=== PATIENT | female | born 1960 | race Caucasian/White ===

== ENCOUNTER → 2017-10-15 | Outpatient (CLI) | payer BC ==
[2017-10-15 16:53] LABS: Basophils # (A) 0.1 k/uL (0-0.2); Basophils % (A) 1 %; Eosinophils # (A) 0.2 k/uL (0-0.7); Eosinophils % (A) 2 %; HCT 43.2 % (34.0-46.0); Lymphocytes # (A) 1.5 k/uL (1.0-4.8); Lymphocytes % (A) 16 %; MCH 28.7 pg (25.0-35.0); MCHC 32.4 g/dL (31.0-37.0); MCV 88.5 fL (80.0-100.0); Mean Platelet Volume 7.2; Monocytes # (A) 0.5 k/uL (0-1.0); Monocytes % (A) 6 %; Neutrophils # (A) 7.2 k/uL (1.3-7.7); Neutrophils % (A) 75 %; Platelet Count 286 k/uL (150-450); RBC 4.88 m/uL (3.80-5.40); RDW 13.3 % (11.5-15.5); WBC 9.6 k/uL (3.8-10.6)
== END | disposition home or self-care (01) ==
LOC: LABPAT 16:27
PROVIDERS: ATTEND Obstetrics & Gynecology
DX: N93.8 Other specified abnormal uterine and vaginal bleeding (principal)
CPT/HCPCS: 36415; 85025

== ENCOUNTER 2017-10-23 06:46 | Day surgery (SDC) | payer BC, OTHER ==
[2017-10-20 11:57] VITALS: BMI 30.7
--- NOTE | 2017-10-22 12:09 | HP ---
HISTORY AND PHYSICAL DATE OF ADMISSION: 10/23/2017 HISTORY: This is a 56-year-old 2, para 1-1-0-1 woman with postmenopausal bleeding and thickened endometrium on pelvic ultrasound. Endometrial biopsy was benign. She is scheduled to undergo diagnostic hysteroscopy, D and C, and NovaSure endometrial ablation. ALLERGIES: PENICILLIN causes rash. MEDICATIONS: 1. Prometrium 200 mg at bedtime. 2. Loratadine 10 mg p.r.n. PAST MEDICAL HISTORY: Diverticulosis. PAST SURGICAL HISTORY: Appendectomy 2000, knee surgery 1982. PAST [employer]IN WORKER HISTORY: She is a 2, para 1-1-0-1 woman with history of 2 vaginal deliveries with 1 living child. No history of abnormal Pap smears or STDs. SOCIAL HISTORY: Negative tobacco, alcohol, and drug use. She is single. FAMILY HISTORY: Lung cancer in her mother. REVIEW OF SYSTEMS: Significant for fatigue. Negative for fevers, chills, nausea, vomiting, abdominal pain, shortness of breath, chest pain, rash. PHYSICAL EXAM: Blood pressure 124/84, height 5 feet 5 inches, weight 190 pounds, pulse 77. In general, this is a very pleasant female in no apparent distress. HEENT exam is unremarkable with no palpable lymphadenopathy or thyromegaly. The lungs are clear to auscultation bilaterally and the heart is of regular rate and rhythm. The abdomen is soft, nontender with no palpable masses, no rebound, no guarding. On pelvic examination, she has normal female external genitalia without lesions or irritation. On speculum examination, the cervix is grossly normal to appearance. On bimanual exam, the uterus is small, freely mobile and in the midline. ASSESSMENT: This is a 56-year-old 2, para 1 woman with thickened endometrium and postmenopausal bleeding. She is scheduled to undergo diagnostic hysteroscopy with D and C and NovaSure ablation. This procedure, anticipated recovery, and risks have been reviewed with the patient in detail. Risks include, but are not limited to bleeding, transfusion, infection, uterine perforation with possible injury to internal structures. She understands these risks and agrees to proceed. MMODL / IJN: [id number] /
[~2017-10-23 06:46] MED LIST: DEXAMETHASONE SOD PHOSPHATE 10 MG/ML 1 ML VIAL IV ONE; LACTATED RINGERS 1,000 ML IV SCH; MIDAZOLAM 2 MG/2 ML VIAL IV PRN; ONDANSETRON 4 MG/2 ML VIAL IVP ONE; Pre Op ABX Message 1 EACH MISC MISCELLANE ONE; SCOPOLAMINE 1.5MG/72HR PATCH TRANSDERM ONE; fentaNYL (PF) 50 MCG/ML 2 ML AMP IV PRN
[2017-10-23] MEDS ORDERED: PROPOFOL 10 MG/ML 20 ML VIAL IV ONE (07:43)
[2017-10-23] MEDS ORDERED: MIDAZOLAM 2 MG/2 ML VIAL ONE (07:43)
[2017-10-23] MEDS ORDERED: fentaNYL (PF) 50 MCG/ML 2 ML AMP ONE (07:43)
[2017-10-23] MEDS ORDERED: LIDOCAINE 1% INJ 10MG/ML (20 ML MDV) ONE (07:43)
[2017-10-23] MEDS ORDERED: KETOROLAC 30 MG/ML 1 ML VIAL ONE (07:43)
[2017-10-23] MEDS ORDERED: LIDOCAINE 1%-EPI 1:100,000 30 ML VIAL SQ ONE ×2 (07:59)
[2017-10-23 08:28] VITALS: TEMP 96.9
--- NOTE | 2017-10-23 08:28 | P.OP ---
Date of Procedure: 10/23/17 Preoperative Diagnosis: Thickened endometrium Postmenopausal bleeding Postoperative Diagnosis: Same Procedure(s) Performed: Diagnostic hysteroscopy, D&C, NovaSure endometrial ablation Surgeon: Carline Shook Estimated Blood Loss (ml): 5 IV fluids (ml): 300 Urine output (ml): 15 Pathology: other (Endometrial curettings) Condition: stable Disposition: PACU Indications for Procedure: Thickened endometrium on ultrasound, postmenopausal bleeding Operative Findings: Normal appearing endometrial cavity with no gross intracavitary lesions or abnormalities appreciated Description of Procedure: After the patient was met in the preoperative holding area and all questions were answered she was taken to the operating room where anesthetic was administered without incident. She was in positioned, prepped and draped in the dorsal lithotomy position. Bladder was drained for a scant amount of clear urine. Single-sided speculum was placed in the vagina and the cervix was grasped anteriorly with a single-tooth tenaculum. Paracervical block with lidocaine plus epinephrine was placed. Uterus was sounded to 8 cm. The cervix was sequentially dilated with Hegar dilators to allow for passage of the diagnostic hysteroscope. Hysteroscope was introduced and the above findings were noted. Hysteroscope was removed and the cervix was further dilated to allow for passage of the small sharp banjo curet. The uterus was circumferentially curettaged with minimal tissue obtained. The NovaSure ablation device was then inserted with a cavity length of 5.0 cm and a width of 4.4 cm. Cavity assessment test was passed. The device was enabled for a treatment cycle of 76 seconds. Following cessation of the treatment cycle the device was removed and the hysteroscope was reintroduced. Complete desiccation of the endometrium was appreciated. Hysteroscope was removed as was the tenaculum. Cervix was observed and no active bleeding was noted. Instruments removed from the vagina and the patient was awoken from anesthetic without incident. She was transported to recovery in stable condition. All counts reported to me as correct by the operating room staff.
[2017-10-23] MEDS: HYDROmorphone 1 MG/ML 1 ML SYRINGE IVP ONE ×2 (08:40→08:45)
[2017-10-23] MEDS ORDERED: ONDANSETRON 4 MG/2 ML VIAL IVP ONE (08:46)
[2017-10-23 09:13] VITALS: RESP 16
[2017-10-23 09:58] VITALS: BP 119/70; PULSE 64
== END 2017-10-23 10:33 | disposition home or self-care (01) ==
LOC: OR 06:46
PROVIDERS: ATTEND Obstetrics & Gynecology
DX: N95.0 Postmenopausal bleeding (principal); N93.8 Other specified abnormal uterine and vaginal bleeding; Z79.899 Other long term (current) drug therapy; Z88.0 Allergy status to penicillin
CPT/HCPCS: 88305; 58563; J2250; J1100; J2405; J2001; J3010; J1885; J1170; J2704

== ENCOUNTER → 2017-11-30 | Outpatient (CLI) | payer BC ==
--- NOTE | 2017-12-02 11:27 | MM ---
Reason for exam: screening (asymptomatic). Last mammogram was performed 4 years and 9 months ago. History: Patient is postmenopausal. Physical Findings: A clinical breast exam by your physician is recommended on an annual basis and results should be correlated with mammographic findings. MG 3D Screening Mammo W/Cad Bilateral CC and MLO view(s) were taken. Prior study comparison: February 23, 2013, mammogram, performed at [place]. There are scattered fibroglandular densities. There is no discrete abnormality. No significant changes when compared with prior studies. ASSESSMENT: Negative, BI-RAD 1 RECOMMENDATION: Routine screening mammogram of both breasts in 1 year.
== END | disposition home or self-care (01) ==
LOC: RADMAMWWP 16:48
PROVIDERS: ATTEND Obstetrics & Gynecology
DX: Z12.31 Encounter for screening mammogram for malignant neoplasm of breast (principal)
CPT/HCPCS: 77063; 77067

== ENCOUNTER → 2019-01-03 | Outpatient (CLI) | payer BC ==
--- NOTE | 2019-01-04 11:45 | XR ---
EXAMINATION TYPE: XR chest 2V DATE OF EXAM: 01/03/2019 COMPARISON: NONE HISTORY: Cough for 4 days TECHNIQUE: Frontal and lateral views of the chest are obtained. FINDINGS: There is no focal air space opacity, pleural effusion, or pneumothorax seen. There is inc reased retrosternal airspace. The cardiac silhouette size is within normal limits. The osseous stru ctures are intact. Mild multilevel degenerative changes of the spine. IMPRESSION: No acute cardiopulmonary process. Increased retrosternal airspace disease however no oth er findings of COPD are seen. Pulmonary function test could be performed.
== END | disposition home or self-care (01) ==
LOC: RADXRMAIN 16:35
PROVIDERS: ATTEND Otolaryngology
DX: J98.8 Other specified respiratory disorders (principal)
CPT/HCPCS: 71046

== ENCOUNTER → 2019-01-25 | Outpatient (CLI) | payer BC ==
--- NOTE | 2019-01-26 11:15 | MM ---
Reason for exam: screening (asymptomatic). Last mammogram was performed 1 year and 2 months ago. History: Patient is postmenopausal. Physical Findings: A clinical breast exam by your physician is recommended on an annual basis and results should be correlated with mammographic findings. MG 3D Screening Mammo W/Cad Bilateral CC and MLO view(s) were taken. Prior study comparison: November 30, 2017, bilateral MG 3d screening mammo w/cad. February 23, 2013, mammogram, performed at [place]. The breast tissue is heterogeneously dense. This may lower the sensitivity of mammography. There is no discrete abnormality. ASSESSMENT: Negative, BI-RAD 1 RECOMMENDATION: Routine screening mammogram of both breasts in 1 year.
== END ==
LOC: RADMAMWWP 07:32
PROVIDERS: ATTEND Obstetrics & Gynecology
DX: Z12.31 Encounter for screening mammogram for malignant neoplasm of breast (principal)
CPT/HCPCS: 77063; 77067

== ENCOUNTER → 2020-04-11 | Outpatient (CLI) | payer BC ==
--- NOTE | 2020-04-16 11:13 | MM ---
Reason for exam: screening (asymptomatic). Last mammogram was performed 1 year and 2 months ago. History: Patient is postmenopausal. Family history of breast cancer in paternal aunt. Taking estrogen beginning at age 57. Taking progesterone beginning at age 57. Physical Findings: A clinical breast exam by your physician is recommended on an annual basis and results should be correlated with mammographic findings. MG 3D Screening Mammo W/Cad Bilateral CC and MLO view(s) were taken. Prior study comparison: January 25, 2019, bilateral MG 3d screening mammo w/cad. November 30, 2017, bilateral MG 3d screening mammo w/cad. There are scattered fibroglandular densities. No significant changes when compared with prior studies. ASSESSMENT: Negative, BI-RAD 1 RECOMMENDATION: Routine screening mammogram of both breasts in 1 year.
== END | disposition home or self-care (01) ==
LOC: RADMAMWWP 07:48
PROVIDERS: ATTEND Obstetrics & Gynecology
DX: Z12.31 Encounter for screening mammogram for malignant neoplasm of breast (principal); Z80.3 Family history of malignant neoplasm of breast
CPT/HCPCS: 77063; 77067

== ENCOUNTER → 2021-09-25 | Outpatient (CLI) | payer OTHER ==
--- NOTE | 2021-09-27 07:51 | MM ---
Reason for Exam: Screening (asymptomatic). Last mammogram was performed 1 year(s) and 6 month(s) ago. Patient History: Menarche at age 15. First Full-Term at age 25. Postmenopausal. Currently using Estrogen, starting at age 57. Currently using Progesterone, starting at age 57. Paternal aunt had breast cancer. Risk Values: Whitley 5 year model risk: 1.2%. NCI Lifetime model risk: 6.9%. Prior Study Comparison: 11/30/2017 Bilateral Screening Mammogram, [facility]. 01/25/2019 Bilateral Screening Mammogram, [facility]. 04/11/2020 Bilateral Screening Mammogram, [facility]. Tissue Density: The breast tissue is heterogeneously dense. This may lower the sensitivity of mammography. Findings: Analyzed By CAD. There is no suspicious group of microcalcifications or new suspicious mass in either breast. Overall Assessment: Negative, BI-RAD 1 Management: Screening Mammogram of both breasts in 1 year. A clinical breast exam by your physician is recommended on an annual basis and results should be correlated with mammographic findings. Electronically signed and approved by: Kyler Kim M.D. Radiologis
== END | disposition home or self-care (01) ==
LOC: RADMAMWWP 16:34
PROVIDERS: ATTEND Obstetrics & Gynecology
DX: Z12.31 Encounter for screening mammogram for malignant neoplasm of breast (principal); Z80.3 Family history of malignant neoplasm of breast; Z78.0 Asymptomatic menopausal state
CPT/HCPCS: 77063; 77067

== ENCOUNTER → 2022-07-22 | Outpatient (CLI) | payer OTHER ==
--- NOTE | 2022-07-22 11:34 | MM ---
Reason for Exam: Clinical finding. Last screening mammogram was performed 10 month(s) ago. Patient History: Menarche at age 15. First Full-Term at age 25. Postmenopausal. Currently using Estrogen, starting at age 57. Currently using Progesterone, starting at age 57. Paternal aunt had breast cancer. Risk Values: Whitley 5 year model risk: 1.2%. NCI Lifetime model risk: 6.7%. Prior Study Comparison: 01/25/2019 Bilateral Screening Mammogram, [facility]. 04/11/2020 Bilateral Screening Mammogram, [facility]. 09/25/2021 Bilateral MG 3D screening mammo w/cad, [facility]. Tissue Density: Left: The breast tissue is almost entirely fat. Findings: Analyzed By CAD. No new suspicious masses, calcifications or distortions. Nothing to correlate with palpable abnormality in the left breast. Overall Assessment: Incomplete: need additional imaging evaluation, BI-RAD 0 Management: Diagnostic Breast Ultrasound of the left breast. A clinical breast exam by your physician is recommended on an annual basis and results should be correlated with mammographic findings. This exam should not preclude additional follow-up of suspicious palpable abnormalities. Results were given to the patient verbally at the time of exam. Electronically signed and approved by: Andrea Oakley DO
--- NOTE | 2022-07-22 11:36 | USB ---
Reason for Exam: Clinical finding. Patient History: Menarche at age 15. First Full-Term at age 25. Postmenopausal. Currently using Estrogen, starting at age 57. Currently using Progesterone, starting at age 57. Paternal aunt had breast cancer. Risk Values: Whitley 5 year model risk: 1.2%. NCI Lifetime model risk: 6.7%. Technique: Method: Targeted. Patient Position: Supine. Prior Study Comparison: 01/25/2019 Bilateral Screening Mammogram, [facility]. 04/11/2020 Bilateral Screening Mammogram, [facility]. 09/25/2021 Bilateral MG 3D screening mammo w/cad, [facility]. Findings: The lower inner quadrant of the left breast was scanned. Imaged: Ultrasound imaging of: All 4 quadrants, the retroareolar region and axilla. No evidence for organizing fluid collection or mass. Nothing to correlate with palpable abnormality. Overall Assessment: Negative, BI-RAD 1 Management: Screening Mammogram of both breasts in 1 year. A clinical breast exam by your physician is recommended on an annual basis and results should be correlated with mammographic findings. This exam should not preclude additional follow-up of suspicious palpable abnormalities. Results were given to the patient verbally at the time of exam. Electronically signed and approved by: Andrea Oakley DO
== END | disposition home or self-care (01) ==
LOC: RADMAMWWP 10:47
PROVIDERS: ATTEND Obstetrics & Gynecology
DX: N63.20 Unspecified lump in the left breast, unspecified quadrant (principal); Z80.3 Family history of malignant neoplasm of breast; Z78.0 Asymptomatic menopausal state
CPT/HCPCS: 77065; 76642; G0279; 77061

== ENCOUNTER → 2023-12-18 | Outpatient (CLI) | payer BC ==
--- NOTE | 2023-12-20 11:47 | MM ---
Reason for Exam: Screening (asymptomatic). Last mammogram was performed 2 year(s) and 3 month(s) ago. Patient History: Menarche at age 15. First Full-Term at age 25. Postmenopausal. Currently using Estrogen, starting at age 57. Currently using Progesterone, starting at age 57. Paternal aunt had breast cancer. Risk Values: Whitley 5 year model risk: 1.3%. NCI Lifetime model risk: 6.4%. Prior Study Comparison: 04/11/2020 Bilateral Screening Mammogram, [facility]. 09/25/2021 Bilateral MG 3D screening mammo w/cad, [facility]. 07/22/2022 Left MG 3D diag mammo w/cad , [facility]. Tissue Density: The breasts are almost entirely fatty. Findings: Analyzed By CAD. Right breast: There is no suspicious group of microcalcifications or new suspicious mass. Left breast: There is no suspicious group of microcalcifications or new suspicious mass. Overall Assessment: Negative, BI-RAD 1 Management: Screening Mammogram of both breasts in [address] [facility] will attempt to contact patient to return for supplemental views and ultrasound if indicated. Patient should continue monthly self-breast exams. A clinical breast exam by your physician is recommended on an annual basis. This exam should not preclude additional follow-up of suspicious palpable abnormalities. Note on Whitley scores and lifetime risk: 1. A Whitley score greater than 3% is considered moderate risk. If this is the case, consider specialist referral to assess eligibility for a risk reducing agent. 2. If overall lifetime risk for the development of breast cancer is 20% or higher, the patient may qualify for future screening with alternating mammogram and breast MRI. Electronically signed and approved by: Andrea Oakley DO
== END | disposition home or self-care (01) ==
LOC: RADMAMWWP 08:43
PROVIDERS: ATTEND Obstetrics & Gynecology
DX: Z12.31 Encounter for screening mammogram for malignant neoplasm of breast
CPT/HCPCS: 77063; 77067